=== PATIENT | female | born 1990 | race Caucasian/White ===

== ENCOUNTER 2020-01-18 09:55 | Inpatient (IN) ==
[2020-01-18] MEDS ORDERED: OXYTOCIN/DEXTROSE 5%-WATER 30 UNITS/500 ML BAG IV ONE ×2 (10:01→18:49)
[2020-01-18] MEDS ORDERED: ONDANSETRON 4 MG TAB.RAPDIS PO PRN (10:01)
[2020-01-18] MEDS: RINGER'S SOLUTION,LACTATED 1,000 ML IV ONE ×3 (10:54→13:52)
[2020-01-18] MEDS ORDERED: NALOXONE HCL 1 MG/1 ML SYRG IV PRN (12:14)
[2020-01-18] MEDS ORDERED: ONDANSETRON HCL/PF 2 MG/ML VIAL IV PRN (12:14)
[2020-01-18] MEDS ORDERED: BUPIVACAINE HCL/0.9 % NACL/PF 250 ML EP PRN (12:14)
[2020-01-18] MEDS ORDERED: fentaNYL CITRATE/PF 50 MCG/ML AMPUL IT SCH (12:15)
--- NOTE | 2020-01-18 12:18 | ANES ---
Anesthesia Pre Procedure Eval Vitals/Labs: Last Vital Signs Temp 36.7 C 01/18/20 10:15 Pulse 90 01/18/20 10:15 Resp 18 01/18/20 10:15 BP 114/74 01/18/20 10:15 Pulse Ox 98 01/18/20 10:15 HOME MEDICATIONS ferrous sulfate 325 mg (65 mg iron) tablet 325 mg PO DAILY #30 tab 10/28/19 [Last Taken Unknown] Vits96/Iron Fum/Folic [ S] 1 tab PO DAILY 01/18/20 [Last Taken 01/16/20] Allergies/Adverse Reactions: Allergies Allergy/AdvReac Type Severity Reaction Status Date / Time amoxicillin Allergy Mild rash Verified 01/18/20 10:14 Penicillins Allergy Mild rash Verified 01/18/20 10:14 - Planned Procedure Planned Procedure: ACTIVE LABOR Medication List Reviewed:: Yes Allergies Verified: Yes Medical History (Last Reviewed 01/18/20 @ 12:17 by Daniel Aguilar CRNA) No significant medical problems Surgical History (Last Reviewed 01/18/20 @ 12:17 by Daniel Aguilar CRNA) No significant past surgical history Family History (Last Reviewed 01/18/20 @ 12:17 by Daniel Aguilar CRNA) Mother Dementia Father Alive and well - Family Anesthesia History Family History:: no untoward family reactions to anesthesia, no familial bleeding tendencies, no family history of clotting disorders, no family history of premature - Airway/Neck/Teeth Within Normal Limits:: Yes Teeth Condition: intact Neck Exam: full range of motion Mallampatti Score: 2 Thyromental (T-M) distance: > 6 cm Mandibulo Hyoid distance: > 3 cm - Respiratory Respiratory Physical: lungs clear Smoking Status: Never smoker Sleep Apnea currently treated: No Sleep Apnea by current assessment: No - Cardiovascular Tolerate Activity: Fair Heart Sounds: S1 & S2, Regular - Gastrointestinal NPO since: today - Anesthesia Assessment and Plan ASA Class: PS, II, E Anesthesia Type Plan: Epidural - CSE for labor analgesia
--- NOTE | 2020-01-18 12:47 | ANES ---
Anesthesia Procedure Note Procedure Note: ANESTHESIA PROCEDURE NOTE Date of Procedure: 01/18/2020 Time of procedure: 12:15 PM. Performed by: LALA Arnold CRNA, MSN Trauma Coordinator: Sheree De Guzman RN. Preprocedure diagnosis: Active labor, labor pain. Post procedure diagnosis: Same. Procedure:Epidural for labor analgesia L3-4. Indications: Labor pain. Findings: See below. Details of the procedure: The patient was placed on the side of the bed in sitting positionand prepped with DuraPrep then draped in a sterile fashion. Lidocaine 1% was infiltrated to the skin and subcutaneous tissues at the level of the L3-4 interspace. An 18-gauge Touhy needle was used to approach the epidural space with loss of resistance technique. Once loss of resistance was achieved a 27-gauge spinal needle was passed through the epidural needle and CSF was contacted. After CSF returned, 20 mcg of fentanyl was injected in the spinal needle was removed the epidural catheter was then threaded approximately 4 cm in the epidural needle was removed. The catheter was taped in place and after careful aspiration 3 mL of 1.5% lidocaine with 1-200,000 epinephrine was injected without change in maternal heart rate or sensorium. . EBL: Minimal. Fluids: N/A. Specimen: N/A. Post procedure condition: The patient tolerated the procedure well with good relief. No complications were noted. Thank you for this consultation. Daniel Aguilar CRNA, LALA, MSN
--- NOTE | 2020-01-18 12:48 | ANES ---
Post Anesthesia Discharge - Transfer of Care Transfer of Care handoff given to nurse: Yes - Discharge from PACU Discharge from PACU when meets criteria: Yes - Comfortable post CSE.
--- NOTE | 2020-01-18 12:53 | ANES ---
Post Anesthesia Assessment - Vital Signs Vitals: Last Vital Signs Temp 36.7 C 01/18/20 10:15 Pulse 90 01/18/20 10:15 Resp 18 01/18/20 10:15 BP 114/74 01/18/20 10:15 Pulse Ox 98 01/18/20 10:15 Airway Patency: Normal - Mental Status Level Of Consciousness: Awake, Alert, Appropriate - Pain Level Pain Score: 0 - N/V Assessment Nausea/Vomiting Presence: None Dehydration:: No
--- NOTE | 2020-01-18 13:11 | HP ---
Chief Complaint - Chief Complaint Date of Service: 01/18/20 Time of Service: 13:01 Chief Complaint: contractions History of Present Illness: 29 yo at 39 4/7 weeks presents to L&D for labor from office. This uncomplicated. Rh positive Rubella immune GBS negative Medical History (Last Reviewed 01/18/20 @ 13:04 by Chevy Braxton DO) No significant medical problems Surgical History: Surgical History (Last Reviewed 01/18/20 @ 13:04 by Chevy Braxton DO) No significant past surgical history Family History: Family History (Last Reviewed 01/18/20 @ 13:04 by Chevy Braxton DO) Mother Dementia Father Alive and well Social History: (Last Reviewed 01/18/20 @ 13:04 by Chevy Braxton DO) Social History: adopted: No detention: No Marital status: household members: spouse, children number of children: 1 current occupational status: employed 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 current occupational exposures/hazards: No Highest education level completed: Associate degree: academi Sexually Active: Yes Service: No Tobacco: Smoking Status: Never smoker Alcohol: alcohol intake: former Substance Use: substance use type: does not use Dietary Habits: caffeine: Yes caffeine comment: 2/week Type: carbonated beverages, tea Exercise: Physical activity type: walking frequency: 3-4 times per week Leilani/Anglican: agree to transfusion: Yes Review Of Systems (GEN) - Review of Systems Generalized/Overall Review: Present: No Symptoms Reported EENTM: Present: No Symptoms Reported Respiratory: Present: No Symptoms Reported Cardiac: Present: No Symptoms Reported Abdominal: Present: Other - contractions Genitourinary: Present: No Symptoms Reported Musculoskeletal: Present: No Symptoms Reported Neurological: Present: No Symptoms Reported Skin: Present: No Symptoms Reported Endocrine: Present: No Symptoms Reported Allergies/Adverse Reactions: Allergies Allergy/AdvReac Type Severity Reaction Status Date / Time amoxicillin Allergy Mild rash Verified 01/18/20 10:14 Penicillins Allergy Mild rash Verified 01/18/20 10:14 Home Medications: HOME MEDICATIONS ferrous sulfate 325 mg (65 mg iron) tablet 325 mg PO DAILY #30 tab 10/28/19 [Last Taken Unknown] Vits96/Iron Fum/Folic [ S] 1 tab PO DAILY 01/18/20 [Last Taken 01/16/20] Exam - Exam Vital Signs: Vital Signs - Last Taken Temp 36.7 C 01/18/20 10:15 Pulse 90 01/18/20 10:15 Resp 18 01/18/20 10:15 BP 114/74 01/18/20 10:15 Pulse Ox 98 01/18/20 10:15 Constitutional: Present: Alert, Oriented x3, Cooperative ENT Exam: Present: hearing grossly normal Neck: Present: non-tender Breasts: Present: Exam deferred Respiratory: Present: lungs clear, no respiratory distress Cardiovascular/Chest: Present: normal peripheral pulses, regular rate, rhythm, no edema Abdomen: Present: soft, nontender, no rebound tenderness, other - gravid /Rectal: Present: Other - /80/-2 now /-3 Extremity: Present: normal range of motion, non-tender, no pedal edema, no calf tenderness Skin Exam: Present: normal color, warm/dry, no cyanosis Lymphatic: Present: no adenopathy Neurologic: Present: alert, normal mood/affect, oriented x 3 Appearance: Present: appropriate appearance, appropriate insight Eye contact: Present: cooperative, good eye contact Thoughts: Present: normal thought pattern, normal mood /affect Assessment/Plan - Assessment/Plan (1) Labor established Assessment: Admit for routine management of labor. Epidural PRN. Problem: Acute (2) Anemia Problem: Chronic Qualifiers: Anemia type: iron deficiency Iron deficiency anemia type: inadequate dietary iron intake Qualified Code(s): D50.8 - Other iron deficiency anemias (3) Influenza A Problem: Resolved
--- NOTE | 2020-01-18 17:08 | PN ---
Progess Note - Interim Date: 01/18/20 Time: 16:35 Narrative: 01/18/20 17:07 Patient comfortable with epidural Vital signs stable. FHT: 150 baseline, reassuring contractions q 2-3 min Cervix: 8-9/90/-2, AROM-clear Impression: Intrauterine at 39-4/7 weeks in labor Plan: Anticipate normal spontaneous vaginal delivery soon
[2020-01-18] MEDS ORDERED: oxyCODONE HCL/ACETAMINOPHEN 1 TAB TABLET PO PRN (18:49)
[2020-01-18] MEDS ORDERED: IBUPROFEN 800 MG TABLET PO PRN (18:49)
[2020-01-18] MEDS ORDERED: GLYCERIN/WITCH HAZEL LEAF 40 APPL BOX TP PRN (18:49)
[2020-01-18] MEDS ORDERED: BISACODYL 10 MG SUPP.RECT RC PRN (18:49)
[2020-01-18] MEDS ORDERED: HYDROCORTISONE 30 APPL TUBE TP PRN (18:49)
[2020-01-18] MEDS ORDERED: BENZOCAINE/MENTHOL 81 SPRAY CAN TP PRN (18:49)
[2020-01-18] MEDS ORDERED: SENNOSIDES 8.6 MG TABLET PO PRN (18:49)
--- NOTE | 2020-01-18 18:51 | OR ---
Operative Report - Dictated Report Narrative: Spontaneous vaginal delivery of vigorously crying viable male at 1818 on 01/18/2020 with Apgars 9 and 9, weighing 3505 g in EMERALD position Cord clamping delayed approximately 1 minute Placenta delivered complete, intact, with three vessel cord Estimated blood loss: 100 mL Anesthesia: Epidural Lacerations: 4 cm first-degree left labial laceration repaired with 4-0 Vicryl Rapide
[2020-01-18] MEDS ORDERED: IBUPROFEN 800 MG TABLET ONE (19:24)
[2020-01-18] MEDS: IBUPROFEN 800 MG TABLET PO PRN (19:25)
[2020-01-18] MEDS: DOCUSATE SODIUM 100 MG CAPSULE PO SCH (22:14)
[2020-01-19] MEDS: IBUPROFEN 800 MG TABLET PO PRN ×3 (01:52→17:50)
[2020-01-19] MEDS: FERROUS SULFATE 325 MG TABLET PO SCH (09:06)
[2020-01-19] MEDS: PRENATAL VITS96/IRON FUM/FOLIC 1 TAB TABLET PO SCH (09:06)
[2020-01-19] MEDS: DOCUSATE SODIUM 100 MG CAPSULE PO SCH ×2 (09:06→21:47)
--- NOTE | 2020-01-19 15:51 | PN ---
Subjective - Date and Time Seen Date: 01/19/20 Time: 15:50 Objective - Vitals Vitals: Last Vital Signs Temp 36.7 C 01/19/20 12:10 Pulse 71 01/19/20 12:10 Resp 18 01/19/20 12:10 BP 105/61 01/19/20 12:10 Pulse Ox 98 01/19/20 12:10 Patient denies complaints. Breast-feeding. Lochia wnl abdomen - soft, nontender Uterus -firm, at umbilicus - 1 no calf tenderness Impression: day #1 - s/p spontaneous vaginal delivery. Plan: Continue routine care Cauti Physician Documentation - Urinary Catheter Management Urethral ([place]) Date of Removal: 01/18/20 Time of Removal: 18:10 Assessment/Plan - Problems/Diagnosis (1) Labor established Problem: Acute (2) Anemia Problem: Chronic Qualifiers: Anemia type: iron deficiency Iron deficiency anemia type: inadequate dietary iron intake Qualified Code(s): D50.8 - Other iron deficiency anemias (3) Influenza A Problem: Resolved
[2020-01-20] MEDS: IBUPROFEN 800 MG TABLET PO PRN (00:26)
[2020-01-20] MEDS: PRENATAL VITS96/IRON FUM/FOLIC 1 TAB TABLET PO SCH (08:51)
[2020-01-20] MEDS: FERROUS SULFATE 325 MG TABLET PO SCH (08:51)
[2020-01-20] MEDS: DOCUSATE SODIUM 100 MG CAPSULE PO SCH ×2 (08:51→21:00)
--- NOTE | 2020-01-20 09:19 | PN ---
Subjective - Date and Time Seen Date: 01/20/20 Time: 09:18 Objective - Vitals Vitals: Last Vital Signs Temp 36.1 C 01/20/20 06:50 Pulse 78 01/20/20 06:50 Resp 20 01/20/20 06:50 BP 113/61 01/20/20 06:50 Pulse Ox 100 01/20/20 06:50 Patient denies complaints. Breast-feeding Lochia wnl abdomen - soft, nontender Uterus -firm, at umbilicus - 2 no calf tenderness Impression: day #2 - s/p spontaneous vaginal delivery. Plan: Routine discharge instructions Cauti Physician Documentation - Urinary Catheter Management Urethral ([place]) Date of Removal: 01/18/20 Time of Removal: 18:10 Assessment/Plan - Problems/Diagnosis (1) Labor established Problem: Acute (2) Anemia Problem: Chronic Qualifiers: Anemia type: iron deficiency Iron deficiency anemia type: inadequate dietary iron intake Qualified Code(s): D50.8 - Other iron deficiency anemias (3) Influenza A Problem: Resolved
[2020-01-20 14:19] VITALS: BP 121/76
== END 2020-01-20 21:25 | disposition home or self-care (01) | DRG 807 ==
LOC: OB 09:55
PROVIDERS: ADMIT Obstetrics & Gynecology; ATTEND Obstetrics & Gynecology
CPT/HCPCS: 59025